=== PATIENT | female | born 1975 | race Caucasian/White ===

== ENCOUNTER 2021-04-02 08:22 | Day surgery (SDC) | payer OTHER ==
[2021-04-02 08:37] LABS: Absolute Lymphocytes (CBC) 1.8 K/uL (0.7-4.9); Basophils % 0.6 % (0-1.3); Hematocrit 42.1 % (36.0-45.0); Lymphocytes % 30.9 % (15.3-44.8); MPV 8.5 fL (7.6-11.3)
[2021-04-02] MEDS ORDERED: EPINEPHRINE/PF 1 MG/ML AMP ONE (08:55)
[2021-04-02] MEDS ORDERED: CEFAZOLIN SODIUM 1 GM/VIAL ONE (08:55)
[2021-04-02] MEDS ORDERED: NS 0.9% VIAL 40 ML ONE (08:55)
[2021-04-02] MEDS ORDERED: NA CHLORIDE 0.9% 2,000 ML ONE (08:56)
[2021-04-02] MEDS ORDERED: BACITRACIN 50000 UNIT VIAL ONE (08:56)
[2021-04-02] MEDS ORDERED: GENTAMICIN SULF 80 MG/2ML INJ ONE (08:56)
[2021-04-02] MEDS ORDERED: Ringers Lactate 1,000 ML IV ONE ×4 (08:56→18:48)
[2021-04-02] MEDS ORDERED: LIDOCAINE 1% W/EPI 1:100,000 MDV 20 ML VIAL ONE (08:56)
[2021-04-02] MEDS ORDERED: Mastisol Adhesive Liq ONE (08:56)
[2021-04-02] MEDS ORDERED: propofoL 200 MG/20 ML VIAL IV ONE (09:08)
[2021-04-02] MEDS ORDERED: VECURONIUM 10 MG/VIAL IV ONE ×2 (09:09→09:20)
[2021-04-02] MEDS ORDERED: ONDANSETRON 4 MG/2 ML VIAL ONE ×3 (09:09→20:11)
[2021-04-02] MEDS ORDERED: LIDOCAINE 1% MPF 5 ML VIAL ONE (09:09)
[2021-04-02] MEDS ORDERED: dexAMETHasone 10 MG/ML VIAL ONE (09:09)
[2021-04-02] MEDS ORDERED: FENTANYL CITR 250 MCG/5 ML ONE (09:09)
[2021-04-02] MEDS ORDERED: MIDAZOLAM HCL 2 MG/2 ML INJ ONE (09:09)
[2021-04-02] MEDS ORDERED: NS 0.9% VIAL 10 ML ONE ×2 (09:09→11:30)
[2021-04-02] MEDS ORDERED: LANO/MINERAL OIL/PETRO 3.5 GM ONE (09:20)
[2021-04-02 09:32] LABS: Urine Appearance CLEAR (Clear); Urine Bilirubin NEGATIVE (Negative); Urine Blood NEGATIVE (Negative); Urine Color YELLOW (Yellow); Urine Glucose NEGATIVE (Negative); Urine Protein NEGATIVE (Negative); Urine Specific Gravity 1.025 (1.005-1.030); Urine Urobilinogen 0.2 mg/dL (0.2-1.0); Urine pH 5.5 (5.0-7.0)
[2021-04-02] MEDS ORDERED: SCOPOLAMINE HYDROBROMIDE PATCH TD ONE (09:32)
[2021-04-02] MEDS ORDERED: CEFAZOLIN/SWI 1gm 1 GM/10 ML SYR ONE (09:32)
[2021-04-02 10:27] LABS: Urine Microscopic Reflex NO UMIC
[2021-04-02] MEDS ORDERED: Phenylephrine HCl 10 MG/ML 1 ML VIAL ONE (11:30)
--- NOTE | 2021-04-02 12:55 | EKG ---
Test Date: 2021-04-02 Test Time: 07:15:[address] Cutter: DEXTER MEASUREMENT RESULTS: Intervals: Rate: 72 WI: 148 QRSD: 78 QT: 386 QTc: 422 [place]: P: 60 WI: 148 QRS: 73 T: 52 INTERPRETIVE STATEMENTS: Normal sinus rhythm Normal ECG No previous ECG available for comparison Electronically Signed On 04-02-21 12:53:40 CDT by Tristen Chavez
[2021-04-02] MEDS ORDERED: GLYCOPYRROLATE 0.2 MG/ML SYR ONE (14:54)
[2021-04-02] MEDS ORDERED: NEOSTIGMINE 1 MG/ML -5 ML ONE (14:54)
[2021-04-02] MEDS ORDERED: FENTANYL CITR 100 MCG/2 ML ONE (15:28)
[2021-04-02] MEDS ORDERED: MORPHINE 10 MG/ML VIAL ONE ×2 (15:57→16:43)
[2021-04-02] MEDS: MEPERIDINE HCL 25 MG/ML SYR ONE ×2 (18:12→18:54)
[2021-04-02] MEDS ORDERED: HYDROMORPHONE HCL 1 MG/ML INJ ONE (18:24)
[2021-04-02] MEDS ORDERED: PROMETHAZINE INJ 25 MG/ML AMP ONE (18:30)
[2021-04-02] MEDS ORDERED: METOCLOPRAMIDE 10 MG/2mL INJ ONE (18:50)
[2021-04-02] MEDS ORDERED: CODEINE 30MG/APAP 300MG TAB ONE (18:54)
[2021-04-02 19:53] VITALS: BP 147/90; TEMP 97.2; O2SAT 100
--- NOTE | 2021-04-04 05:46 | OP ---
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 Procedure Performed: Explantation of breast lift, liposuction. Anesthesia: General. Operative Note: After satisfactory induction of general anesthesia, the chest was prepped with DuraP rep and dry sterile drapes applied in the usual manner. A 5 cm template was used to outline the righ t and left areolas and then a transverse and curvilinear incisions were made with the scalpel. Elect rocautery was used to dissect the flap cephalad toward the sternum, clavicle, anterior axillary line. Then, retropectoral dissection was done. The implants were grasped. They were silicon. They were 400 cc implant. They weighed 406 g each. Then the inferior incision was made. Excess lateral sherry st tissue was excised and then conization was performed with 2-0 PDS suture. Then straps were elevat ed at 12 o'clock, 1:30, and 3 o'clock position on the right breast. The straps were then woven in an d out of pectoralis muscle back to base of the cone back to pectoral muscle back to base of cone tied themselves with 2-0 PDS suture. This was done for the 12 o'clock, 1:30 strap. The 3 o'clock strap was sewn over the sternum at 3 o'clock position with 2-0 Ethibond. The wound was temporary stapled s hut. Mirror image was done on opposite side. The patient returned to right side. Dog ears were the n marked out and excised with a scalpel and electrocautery. The wound was irrigated with antibiotic solution and then a 10 SIMI brought out of the axilla and then the wound was closed with 3-0 Vicryl sub cu and 3-0 PDS running subcuticular tied in the vertical meridian of the breast. This was done in mi rror-image manner. The patient was sat up site for new nipple-areolar complex marked out. The tissu e was cored out with 5 cm marker and then the wound was closed with 4-0 PDS interrupted followed by 4 -0 PDS running subcuticular. Later dressed with tinc of benzoin, Steri-Strips, followed by Esmarch, fluffs, and Deniz wrap. New equipment was brought in the room and then the patient was placed supine t o a beanbag and prepped from the nipples to the knees, frog-legged, and then stapled in pl deniz in usual manner. We then made incision over the umbilicus from previous bilaterally a nd then medial thigh area bilaterally. Infusion was performed. The right medial thigh 150, left med ial thigh 115, right flank 400, left flank 400, right abdomen 500, left abdomen 500, midline 500, and liposuction was performed with 4.5 mm cannula. Right medial , right flank 500 out, left f lank 500 out, right abdomen 400 out, left abdomen 400 out, midline 400 out. These wounds were closed with 4-0 PDS suture. Then patient was placed in the left lateral decubitus position and the right s millie of the body from the knee to the nipples were prepped with DuraPrep, dry sterile drapes in the us ua manner. Infusion was made in the mid lateral position for the liposuction and also the _ infusion performed of upper back, performed of lower back and 100 cc were removed. These wounds we re closed with 4-0 PDS suture. The patient was turned to opposite side. Again removed. These wounds were closed with 4-0 PDS suture. A liposuction garment was applied. The patient tolera fam procedure well, returned to recovery room. LING/MODL Voice ID: [id number] Report ID: [id number]
== END 2021-04-02 21:36 | disposition home or self-care (01) ==
LOC: OR 08:22
PROVIDERS: ATTEND Specialist
PROC: 0HPT0JZ Removal of Synthetic Substitute from Right Breast, Open Approach (ICD-10-PCS; 2021-04-02)
PROC: 0J083ZZ Alteration of Abdomen Subcutaneous Tissue and Fascia, Percutaneous Approach (ICD-10-PCS; 2021-04-02)
PROC: 0J0M3ZZ Alteration of Left Upper Leg Subcutaneous Tissue and Fascia, Percutaneous Approach (ICD-10-PCS; 2021-04-02)
PROC: 0J0L3ZZ Alteration of Right Upper Leg Subcutaneous Tissue and Fascia, Percutaneous Approach (ICD-10-PCS; 2021-04-02)
PROC: 0HSV0ZZ Reposition Bilateral Breast, Open Approach (ICD-10-PCS; principal; 2021-04-02 09:00)
PROC: 0HPU0JZ Removal of Synthetic Substitute from Left Breast, Open Approach (ICD-10-PCS; 2021-04-02 09:00)
DX: N64.81 Ptosis of breast (principal); E65 Localized adiposity; Z45.812 Encounter for adjustment or removal of left breast implant; Z45.811 Encounter for adjustment or removal of right breast implant
CPT/HCPCS: 93005; 85025; 36415; 88305; 81003; 19316; 19328; 15879; 15877; J2704; J0171; J2765; J2550; J2370; J1580; J2250; J3010 ×2; J1100; J2175; J1170; J2710; J0690 ×2; J7120 ×4; J7030; J2405 ×2